=== PATIENT | female | born 1970 | race Native Hawaiian/Other Pacific Islander ===

== ENCOUNTER 2017-07-01 22:41 | Emergency (ER) | payer OTHER ==
[2017-07-01] MEDS ORDERED: DiphenhydrAMINE 50 mg/ml Inj ONE (23:11)
[2017-07-01] MEDS ORDERED: DiphenhydrAMINE 50 mg/ml Inj IVP STA (23:22)
--- NOTE | 2017-07-01 23:41 | C.PDOC ---
History Of Present Illness 46 year old female presents to the ED for evaluation of allergic reaction status post eating shrimp earlier tonight. Patient complains of generalized rash , worst in the upper extremities. She denies shortness of breath or throat swelling. No other acute complaints. Chief Complaint (Nursing): Allergic Reaction History Per: Patient History/Exam Limitations: no limitations Onset/Duration Of Symptoms: Sudden Onset Current Symptoms Are (Timing): Still Present Possible Cause: Food (Shrimp) Associated Symptoms: Skin Rash. denies: Dyspnea, Trouble Swallowing Recent travel outside of the [place]: No Past Medical History Reviewed: Historical Data, Nursing Documentation, Vital Signs Vital Signs: Last Vital Signs Temp 98 F 07/01/17 23:11 Pulse 112 H 07/01/17 23:11 Resp 22 07/01/17 23:11 BP 136/86 07/01/17 23:11 Pulse Ox 98 07/02/17 03:04 - Medical History PMH: Hypothyroidism Family History: States: No Known Family Hx - Social History Hx Tobacco Use: No Hx Alcohol Use: No Hx Substance Use: No - Immunization History Hx Tetanus Toxoid Vaccination: No Hx Influenza Vaccination: Yes Hx Pneumococcal Vaccination: No Review Of Systems Except As Marked, All Systems Reviewed And Found Negative. Constitutional: Negative for: Fever, Chills ENT: Negative for: Ear Pain, Mouth Swelling, Throat Pain, Throat Swelling Cardiovascular: Negative for: Chest Pain Respiratory: Negative for: Cough, Shortness of Breath Gastrointestinal: Negative for: Nausea, Vomiting, Abdominal Pain, Diarrhea Skin: Positive for: Rash Neurological: Negative for: Headache Physical Exam - Physical Exam Appears: Non-toxic, No Acute Distress Skin: Warm, Dry, Rash (Rashes to extremities worst in upper extremities ) Head: Atraumatic, Normacephalic Eye(s): bilateral: Normal Inspection, PERRL, EOMI Nose: Normal Oral Mucosa: Moist Tongue: Normal Appearing, No Swelling Lips: Normal Appearing, No Swelling Throat: Normal, Other (No swelling) Neck: Normal, Normal ROM, Trachea Midline, Supple Chest: Symmetrical Cardiovascular: Rhythm Regular Respiratory: Normal Breath Sounds, No Rales, No Rhonchi, No Stridor, No Wheezing Gastrointestinal/Abdominal: Normal Exam, Soft, No Tenderness Back: Normal Inspection Extremity: Normal ROM, No Deformity Extremity: Bilateral: Atraumatic Neurological/Psych: Oriented x3, Normal Speech Gait: Steady ED Course And Treatment O2 Sat by Pulse Oximetry: 98 Progress Note: Benadryl and solumedrol administered. Will observe patient and reassess. Patient re-examined and is feeling improved. Rashes resolved. Will discharge home. Disposition Counseled Patient/Family Regarding: Diagnosis - Disposition Referrals: [facility] [Outside] Disposition: HOME/ ROUTINE Disposition Time: 02:58 Condition: IMPROVED Prescriptions: DiphenhydrAMINE [Benadryl] 50 mg PO Q6 #14 cap Methylprednisolone [Medrol Dose Pack (21 tabs)] 4 mg PO DAILY #21 mg Instructions: Skin Rash (DC) Forms: [employer] (Sami) - POA Present On Arrival: None - Clinical Impression Clinical Impression: Allergic disorder - Scribe Statement The provider has reviewed the documentation as recorded by the Scribe (Ap Cole) Provider Attestation: All medical record entries made by the Scribe were at my direction and personally dictated by me. I have reviewed the chart and agree that the record accurately reflects my personal performance of the history, physical exam, medical decision making, and the department course for this patient. I have also personally directed, reviewed, and agree with the discharge instructions and disposition.
[2017-07-02 03:20] VITALS: BP 112/74; PULSE 92; RESP 20; TEMP 98.9; O2SAT 100
== END 2017-07-02 03:20 | disposition home or self-care (01) ==
LOC: C.ER 22:41
DX: T78.40XA Allergy, unspecified, initial encounter (principal); X58.XXXA Exposure to other specified factors, initial encounter; E03.9 Hypothyroidism, unspecified
CPT/HCPCS: 96374; 96375; 99285; J1200; J2930

== ENCOUNTER 2017-11-06 03:16 | Emergency (ER) | payer BC, OTHER ==
[2017-11-06 03:27] VITALS: RESP 20; TEMP 97.6
[2017-11-06] MEDS ORDERED: Sodium Chloride 0.9% 1,000 ML IV ONE (03:28)
[2017-11-06] MEDS ORDERED: MethylPREDNISolone 40 mg Vial IVP STA (03:28)
[2017-11-06] MEDS ORDERED: DiphenhydrAMINE 50 mg/ml Inj IVP STA (03:29)
[2017-11-06] MEDS ORDERED: DiphenhydrAMINE 50 mg/ml Inj ONE (03:33)
--- NOTE | 2017-11-06 03:58 | C.PDOC ---
History Of Present Illness 47 y/o female presents to ED for complaints of skin rash associated with erythema and itchiness of extremities that began tonight while working. Denies SOB, or any other physical complaints. Chief Complaint (Nursing): Allergic Reaction History Per: Patient History/Exam Limitations: no limitations Onset/Duration Of Symptoms: Hrs Current Symptoms Are (Timing): Still Present Possible Cause: Unknown Associated Symptoms: Skin Rash, Swelling, Itching, Redness. denies: Dyspnea, Trouble Swallowing, Dizziness, Chest Pain Home/EMS Treatment: None Recent travel outside of the [place]: No Past Medical History Reviewed: Historical Data, Nursing Documentation, Vital Signs Vital Signs: Last Vital Signs Temp 97.6 F 11/06/17 03:23 Pulse 71 11/06/17 05:25 Resp 20 11/06/17 05:25 BP 109/72 11/06/17 05:25 Pulse Ox 96 11/06/17 05:25 - Medical History PMH: Hypothyroidism Surgical History: No Surg Hx Family History: States: No Known Family Hx - Social History Hx Tobacco Use: No Hx Alcohol Use: No Hx Substance Use: No - Immunization History Hx Tetanus Toxoid Vaccination: No Hx Influenza Vaccination: Yes Hx Pneumococcal Vaccination: No Review Of Systems Constitutional: Negative for: Fever, Chills Cardiovascular: Negative for: Chest Pain Respiratory: Negative for: Shortness of Breath Gastrointestinal: Negative for: Nausea, Vomiting, Abdominal Pain, Diarrhea Skin: Positive for: Rash (associated with erythema and itching of extremities ) Neurological: Negative for: Weakness, Numbness Physical Exam - Physical Exam Appears: Well, Non-toxic, No Acute Distress Skin: Rash (Generalized with pruritus itchiness; no swelling) Head: Atraumatic, Normacephalic Eye(s): bilateral: Normal Inspection, PERRL, EOMI Nose: Normal, No Discharge Oral Mucosa: Moist Tongue: Normal Appearing, No Swelling Lips: Normal Appearing, No Swelling Throat: Normal, No Erythema, No Exudate, No Drooling, No Mass Neck: Supple Chest: Symmetrical, No Deformity, No Tenderness Cardiovascular: Rhythm Regular, No Murmur Respiratory: Normal Breath Sounds, No Decreased Breath Sounds, No Rales, No Rhonchi, No Wheezing Gastrointestinal/Abdominal: Soft, No Tenderness Extremity: Normal ROM, No Tenderness, No Deformity Extremity: Bilateral: Atraumatic, Normal Color And Temperature, Normal ROM Neurological/Psych: Oriented x3 (Awake and alert), Normal Speech (Speaking in full sentences; normal voice), Other (No focal deficits ) Gait: Steady ED Course And Treatment O2 Sat by Pulse Oximetry: 98 (RA) Pulse Ox Interpretation: Normal Medical Decision Making Medical Decision Making: Administered SOLU-Mendrol, Pepcid, Benadryl, and IV fluids. Disposition Counseled Patient/Family Regarding: Diagnosis - Disposition Referrals: [facility] [Outside] Disposition: HOME/ ROUTINE Disposition Time: 06:50 Condition: IMPROVED Prescriptions: DiphenhydrAMINE [Benadryl] 50 mg PO Q6 #20 cap Famotidine [Pepcid] 20 mg PO BID #14 tab Methylprednisolone [Medrol Dose Pack (21 tabs)] 4 mg PO DAILY #21 mg Instructions: Food Allergy, Skin Rash Forms: [facility] [employer] (Vietnamese) - POA Present On Arrival: None - Clinical Impression Clinical Impression: Allergic disorder, Urticaria - Scribe Statement The provider has reviewed the documentation as recorded by the Melyssa Ovalles All medical record entries made by the Davidibchato were at my direction and personally dictated by me. I have reviewed the chart and agree that the record accurately reflects my personal performance of the history, physical exam, medical decision making, and the department course for this patient. I have also personally directed, reviewed, and agree with the discharge instructions and disposition.
[2017-11-06 05:27] VITALS: BP 109/72; PULSE 71
[2017-11-06 06:37] VITALS: O2SAT 98
== END 2017-11-06 06:56 | disposition home or self-care (01) ==
LOC: C.ER 03:16
DX: L50.0 Allergic urticaria (principal)
CPT/HCPCS: 96361; 96374; 96375; 99285; J1200; J2920; J7030

== ENCOUNTER 2018-07-12 20:19 | Emergency (ER) | payer OTHER | END 2018-07-12 22:59 | disposition home or self-care (01) | LOC: C.ER 20:19 ==

== ENCOUNTER 2018-07-13 13:26 | Outpatient (CLI) | payer OTHER | END 2018-07-13 13:27 | disposition home or self-care (01) | LOC: C.LAB 13:26 | DX: N30.01 Acute cystitis with hematuria (principal); E88.81 Metabolic syndrome and other insulin resistance; D51.9 Vitamin B12 deficiency anemia, unspecified; E55.9 Vitamin D deficiency, unspecified; D64.9 Anemia, unspecified; N30.00 Acute cystitis without hematuria ==